=== PATIENT | male | born 1945 | race Caucasian/White ===

== ENCOUNTER 2018-11-23 18:52 | Inpatient (IN) | payer BC, MEDICARE ==
[2018-11-23 19:23] LABS: ADD MAN DIFF? NO
[2018-11-23 19:27] LABS: WHITE BLOOD COUNT 6.7 10^3/ul (4.8-10.8)
[2018-11-23 19:27] LABS: BASOPHIL # 0.1 10^3/ul (0.0-0.1); EOSINOPHILS % 0.3 % (0.0-7.0); HEMATOCRIT 45.1 % (42.0-52.0); LYMPHOCYTES # 1.8 10^3/ul (0.8-2.9); LYMPHOCYTES % 27.4 % (15.0-51.0); MEAN CORPUSCULAR HEMOGLOBIN 33.7 pg (29.0-33.0); MEAN CORPUSCULAR HGB CONC 33.3 g/dl (32.0-37.0); MEAN CORPUSCULAR VOLUME 101.3 fl (82.0-101.0); MEAN PLATELET VOLUME 9.7 fl (7.4-10.4); MONOCYTE # 0.5 10^3/ul (0.3-0.9); MONOCYTES % 7.2 % (0.0-11.0); NEUTROPHIL # 4.3 10^3/ul (1.6-7.5); NEUTROPHILS % 63.7 % (39.0-77.0); PLATELET COUNT 123 10^3/UL (140-415); RED BLOOD COUNT 4.45 10^6/ul (4.70-6.10); RED CELL DISTRIBUTION WIDTH 12.9 % (11.5-14.5)
[2018-11-23] MEDS: ASPIRIN 325 MG TAB PO (19:27)
[2018-11-23] MEDS: NITROGLYCERIN (SL) 0.4 MG TAB SL (19:27)
[2018-11-23 19:45] LABS: ALANINE AMINOTRANSFERASE 29 IU/L (13-69); ALBUMIN 3.9 g/dl (3.3-4.9); ALBUMIN/GLOBULIN RATIO 1.11; ALKALINE PHOSPHATASE 80 IU/L (42-121); ANION GAP 15 (5-13); ASPARTATE AMINO TRANSFERASE 46 IU/L (15-46); BILIRUBIN,INDIRECT 0.9 mg/dl (0-1.1); BILIRUBIN,TOTAL 0.9 mg/dl (0.2-1.3); BLOOD UREA NITROGEN 21 mg/dl (7-20); CALCIUM 8.4 mg/dl (8.4-10.2); CARBON DIOXIDE 26 mmol/L (21-31); CHLORIDE 104 mmol/L (97-110); CREATININE 1.42 mg/dl (0.61-1.24); GLUCOSE 81 mg/dl (70-220); LIPASE 47 U/L (23-300); POTASSIUM 4.4 mmol/L (3.5-5.1); SODIUM 145 mmol/L (135-144); TOTAL PROTEIN 7.4 g/dl (6.1-8.1)
[2018-11-23 19:55] LABS: TROPONIN-I 0.023 ng/ml (0.000-0.120)
[2018-11-23] MEDS: ACETAMINOPHEN 500 MG TAB PO (20:11)
[2018-11-23] MEDS ORDERED: NACL 0.9% 3 ML SYG IV (20:30)
[2018-11-23] MEDS ORDERED: ACETAMINOPHEN 325 MG TAB PO ×2 (20:30)
[2018-11-23] MEDS ORDERED: DOCUSATE SODIUM 100 MG CAP PO (20:30)
[2018-11-23] MEDS ORDERED: ONDANSETRON 4 MG INJ IV ×2 (20:30)
[2018-11-23] MEDS ORDERED: BISACODYL (EC) 5 MG TAB PO (20:30)
[2018-11-23] MEDS: IPRATROPIUM (NEB) 0.5 MG/2.5 ML AMP NEB (20:31)
[2018-11-23] MEDS: ALBUTEROL 0.083% (NEB) 2.5 MG/3 ML AMP NEB (20:32)
[2018-11-23] MEDS ORDERED: NON-FORMULARY/PATIENT OWN MED (Simvastatin* (Zocor*) 10 MG) PO (21:00)
[2018-11-23] MEDS ORDERED: NON-FORMULARY/PATIENT OWN MED (Budesonide-Formoterol Fumarate* (Symbicort*) 2 PUFF) IH (21:00)
[2018-11-23] MEDS ORDERED: ALBUTEROL HFA 8 GM INHALER INH (22:30)
[2018-11-23] MEDS: morphine 2 MG INJ IV (22:57)
[2018-11-23] MEDS: SOD CHLORIDE 0.9% 500 ML IV (22:57)
[2018-11-23] MEDS: ATORVASTATIN 10 MG TAB PO (22:57)
[2018-11-24] MEDS: MULTIVITAMINS 10 ML, THIAMINE 100 MG, FOLIC ACID 1 MG in SOD CHLORIDE 0.9% 1,000 ML IVPB (00:15)
[2018-11-24] MEDS: HEPARIN 5,000 UNIT/1 ML VIAL SC ×4 (01:17→22:15)
[2018-11-24 03:00] LABS: CREATINE KINASE 210 IU/L (23-200)
[2018-11-24 03:13] LABS: CK INDEX 1.4; TROPONIN-I 0.034 ng/ml (0.000-0.120)
[2018-11-24 03:19] LABS: CK-MB 3.04 ng/ml (0.0-2.4)
[2018-11-24] MEDS ORDERED: hydrALAzine (1 MG/ML) IV SYG IV (05:00)
[2018-11-24] MEDS: CHLORDIAZEPOXIDE 25 MG CAP PO ×3 (05:02→13:10)
[2018-11-24] MEDS: hydrALAzine 20 MG INJ IV (05:04)
[2018-11-24] MEDS: LORAZEPAM 2 MG INJ IV ×2 (05:51→18:25)
[2018-11-24] MEDS: PANTOPRAZOLE (EC) 40 MG TAB PO (05:51)
[2018-11-24 07:01] LABS: CHOL/HDL RATIO 2.3 RATIO; CHOLESTEROL 192 mg/dl (100-200); CREATINE KINASE 205 IU/L (23-200); HDL CHOLESTEROL 81 mg/dl (31-75); LDL CHOLESTEROL,CALCULATED 81 mg/dl; TRIGLYCERIDES 150 mg/dl (0-149)
[2018-11-24 07:01] LABS: MAGNESIUM 1.6 mg/dl (1.7-2.5)
[2018-11-24 07:02] LABS: CK INDEX 1.5; TROPONIN-I 0.045 ng/ml (0.000-0.120)
[2018-11-24 07:03] LABS: CK-MB 3.11 ng/ml (0.0-2.4)
[2018-11-24 07:43] LABS: HEMOGLOBIN A1C 4.9 % (0-5.9)
[2018-11-24 07:59] LABS: FOLATE > 20.0 ng/ml (2.8-20.0)
[2018-11-24] MEDS: ISOSORBIDE MONONITRATE(SR)30 MG TAB PO (08:33)
[2018-11-24] MEDS: AMLODIPINE 10 MG TAB PO (08:34)
[2018-11-24] MEDS: THIAMINE 100 MG TAB PO (08:34)
[2018-11-24] MEDS: FOLIC ACID 1 MG TAB PO (08:34)
[2018-11-24] MEDS: MULTIVITAMINS THERAPEUTIC TAB PO (08:34)
[2018-11-24] MEDS ORDERED: NON-FORMULARY/PATIENT OWN MED (Omeprazole* 20 MG) PO (09:00)
[2018-11-24] MEDS: BUDESONIDE (NEB) 0.5MG/2ML AMP INH ×2 (11:33→20:43)
[2018-11-24] MEDS: ARFORMOTEROL TARTRATE 15MCG/2 ML AMP INH ×2 (11:33→20:43)
[2018-11-24 11:44] LABS: CREATINE KINASE 178 IU/L (23-200)
[2018-11-24 11:55] LABS: CK INDEX 1.3; TROPONIN-I 0.035 ng/ml (0.000-0.120)
[2018-11-24 18:13] LABS: CREATINE KINASE 160 IU/L (23-200)
[2018-11-24 18:26] LABS: CK INDEX 1.4; CK-MB 2.29 ng/ml (0.0-2.4); TROPONIN-I 0.026 ng/ml (0.000-0.120)
[2018-11-24] MEDS: ATORVASTATIN 10 MG TAB PO (20:21)
[2018-11-25] MEDS ORDERED: CHLORDIAZEPOXIDE 25 MG CAP PO (02:30)
[2018-11-25] MEDS: PANTOPRAZOLE (EC) 40 MG TAB PO (05:47)
[2018-11-25] MEDS: HEPARIN 5,000 UNIT/1 ML VIAL SC ×3 (06:32→22:35)
[2018-11-25] MEDS: ARFORMOTEROL TARTRATE 15MCG/2 ML AMP INH ×2 (09:02→21:08)
[2018-11-25] MEDS: BUDESONIDE (NEB) 0.5MG/2ML AMP INH ×2 (09:03→21:20)
[2018-11-25] MEDS: THIAMINE 100 MG TAB PO (09:21)
[2018-11-25] MEDS: MULTIVITAMINS THERAPEUTIC TAB PO (09:21)
[2018-11-25] MEDS: ISOSORBIDE MONONITRATE(SR)30 MG TAB PO (09:21)
[2018-11-25] MEDS: AMLODIPINE 10 MG TAB PO (09:22)
[2018-11-25] MEDS: FOLIC ACID 1 MG TAB PO (09:22)
[2018-11-25] MEDS: LORAZEPAM 2 MG INJ IV ×3 (12:08→22:36)
[2018-11-25] MEDS: CHLORDIAZEPOXIDE 25 MG CAP PO ×3 (12:10→20:37)
[2018-11-25] MEDS: SOD CHLORIDE 0.45% 1,000 ML IV (15:00)
[2018-11-25] MEDS ORDERED: morphine 2 MG INJ IV (16:30)
[2018-11-25] MEDS: MULTIVITAMINS 10 ML, THIAMINE 100 MG, FOLIC ACID 1 MG in SOD CHLORIDE 0.9% 1,000 ML IVPB (16:54)
[2018-11-25] MEDS: MAGNESIUM SULFATE 1 GM/D5W 100 ML IVPB (16:59)
[2018-11-25] MEDS: ATORVASTATIN 10 MG TAB PO (20:36)
[2018-11-26] MEDS ORDERED: CHLORDIAZEPOXIDE 25 MG CAP PO (02:30)
[2018-11-26] MEDS: SOD CHLORIDE 0.45% 1,000 ML IV ×2 (05:09→17:40)
[2018-11-26] MEDS: PANTOPRAZOLE (EC) 40 MG TAB PO (05:12)
[2018-11-26 06:45] LABS: ADD MAN DIFF? NO
[2018-11-26 07:11] LABS: ANION GAP 8 (5-13); BLOOD UREA NITROGEN 12 mg/dl (7-20); CARBON DIOXIDE 26 mmol/L (21-31); CHLORIDE 103 mmol/L (97-110); CREATININE 0.81 mg/dl (0.61-1.24); GLUCOSE 94 mg/dl (70-220); POTASSIUM 3.7 mmol/L (3.5-5.1); SODIUM 137 mmol/L (135-144)
[2018-11-26 07:12] LABS: CALCIUM 8.6 mg/dl (8.4-10.2)
[2018-11-26 07:24] LABS: MAGNESIUM 1.4 mg/dl (1.7-2.5)
[2018-11-26 07:47] LABS: WHITE BLOOD COUNT 4.8 10^3/ul (4.8-10.8)
[2018-11-26 07:47] LABS: ABNORMAL IP MESSAGE 1; BASOPHILS % 0.8 % (0.0-2.0); EOSINOPHILS # 0.1 10^3/ul (0.0-0.5); EOSINOPHILS % 1.7 % (0.0-7.0); HEMATOCRIT 39.4 % (42.0-52.0); HEMOGLOBIN 13.6 g/dl (14.0-18.0); LYMPHOCYTES # 1.4 10^3/ul (0.8-2.9); LYMPHOCYTES % 30.3 % (15.0-51.0); MEAN CORPUSCULAR HEMOGLOBIN 34.3 pg (29.0-33.0); MEAN CORPUSCULAR HGB CONC 34.5 g/dl (32.0-37.0); MEAN CORPUSCULAR VOLUME 99.5 fl (82.0-101.0); MEAN PLATELET VOLUME 11.3 fl (7.4-10.4); MONOCYTE # 0.4 10^3/ul (0.3-0.9); MONOCYTES % 8.4 % (0.0-11.0); NEUTROPHIL # 2.8 10^3/ul (1.6-7.5); NEUTROPHILS % 58.2 % (39.0-77.0); PLATELET COUNT 56 10^3/UL (140-415); POSITIVE DIFF @See below; RED BLOOD COUNT 3.96 10^6/ul (4.70-6.10)
[2018-11-26] MEDS: CHLORDIAZEPOXIDE 25 MG CAP PO ×3 (08:48→21:26)
[2018-11-26] MEDS: MULTIVITAMINS THERAPEUTIC TAB PO (08:50)
[2018-11-26] MEDS: AMLODIPINE 10 MG TAB PO (08:50)
[2018-11-26] MEDS: THIAMINE 100 MG TAB PO (08:50)
[2018-11-26] MEDS: ISOSORBIDE MONONITRATE(SR)30 MG TAB PO (08:50)
[2018-11-26] MEDS: FOLIC ACID 1 MG TAB PO (08:50)
[2018-11-26] MEDS: ARFORMOTEROL TARTRATE 15MCG/2 ML AMP INH ×2 (09:39→19:38)
[2018-11-26] MEDS: BUDESONIDE (NEB) 0.5MG/2ML AMP INH ×2 (09:40→19:38)
[2018-11-26] MEDS: HEPARIN 5,000 UNIT/1 ML VIAL SC ×2 (10:27→21:36)
[2018-11-26] MEDS: MAGNESIUM SULFATE 3 GM in DEXTROSE 5% 100 ML IVPB (13:08)
[2018-11-26] MEDS: LORAZEPAM 2 MG INJ IV ×2 (13:22→21:26)
[2018-11-26] MEDS: MULTIVITAMINS 10 ML, THIAMINE 100 MG, FOLIC ACID 1 MG in SOD CHLORIDE 0.9% 1,000 ML IVPB (14:58)
[2018-11-26] MEDS: ATORVASTATIN 10 MG TAB PO (21:25)
[2018-11-27] MEDS: SOD CHLORIDE 0.45% 1,000 ML IV ×3 (00:01→21:13)
[2018-11-27] MEDS: LORAZEPAM 2 MG INJ IV (06:17)
[2018-11-27] MEDS: PANTOPRAZOLE (EC) 40 MG TAB PO (06:17)
[2018-11-27] MEDS: MULTIVITAMINS THERAPEUTIC TAB PO (09:17)
[2018-11-27] MEDS: THIAMINE 100 MG TAB PO (09:18)
[2018-11-27] MEDS: AMLODIPINE 10 MG TAB PO (09:18)
[2018-11-27] MEDS: FOLIC ACID 1 MG TAB PO (09:18)
[2018-11-27] MEDS: ISOSORBIDE MONONITRATE(SR)30 MG TAB PO (09:18)
[2018-11-27] MEDS: HEPARIN 5,000 UNIT/1 ML VIAL SC ×2 (09:19→22:56)
[2018-11-27] MEDS: CHLORDIAZEPOXIDE 25 MG CAP PO ×3 (09:24→23:04)
[2018-11-27] MEDS: ARFORMOTEROL TARTRATE 15MCG/2 ML AMP INH ×2 (12:13→20:23)
[2018-11-27] MEDS: BUDESONIDE (NEB) 0.5MG/2ML AMP INH ×2 (12:13→20:23)
[2018-11-27] MEDS: MULTIVITAMINS 10 ML, THIAMINE 100 MG, FOLIC ACID 1 MG in SOD CHLORIDE 0.9% 1,000 ML IVPB (12:59)
[2018-11-27] MEDS: FLUMAZENIL 0.5 MG INJ IV (21:13)
[2018-11-27] MEDS: ATORVASTATIN 10 MG TAB PO (22:56)
[2018-11-28] MEDS: PANTOPRAZOLE (EC) 40 MG TAB PO (06:00)
[2018-11-28] MEDS: BUDESONIDE (NEB) 0.5MG/2ML AMP INH ×2 (07:59→19:52)
[2018-11-28] MEDS: ARFORMOTEROL TARTRATE 15MCG/2 ML AMP INH ×2 (08:01→19:51)
[2018-11-28] MEDS: FOLIC ACID 1 MG TAB PO (08:44)
[2018-11-28] MEDS: THIAMINE 100 MG TAB PO (08:44)
[2018-11-28] MEDS: MULTIVITAMINS THERAPEUTIC TAB PO (08:44)
[2018-11-28] MEDS: AMLODIPINE 10 MG TAB PO (08:44)
[2018-11-28] MEDS: ISOSORBIDE MONONITRATE(SR)30 MG TAB PO (08:44)
[2018-11-28] MEDS: MULTIVITAMINS 10 ML, THIAMINE 100 MG, FOLIC ACID 1 MG in SOD CHLORIDE 0.9% 1,000 ML IVPB (08:46)
[2018-11-28] MEDS: CHLORDIAZEPOXIDE 25 MG CAP PO ×3 (08:46→22:15)
[2018-11-28] MEDS: SOD CHLORIDE 0.45% 1,000 ML IV (09:40)
[2018-11-28] MEDS: HEPARIN 5,000 UNIT/1 ML VIAL SC ×2 (10:15→22:16)
[2018-11-28] MEDS: MAGNESIUM SULFATE 4 GM/100 ML 100 ML IVPB (12:09)
[2018-11-28] MEDS: NITROGLYCERIN (SL) 0.4 MG TAB SL ×3 (18:54→19:17)
[2018-11-28 20:18] LABS: TROPONIN-I < 0.012 ng/ml (0.000-0.120)
[2018-11-28] MEDS: FAMOTIDINE 20 MG INJ IV (22:15)
[2018-11-28] MEDS: ATORVASTATIN 10 MG TAB PO (22:15)
[2018-11-29 06:18] LABS: TROPONIN-I 0.012 ng/ml (0.000-0.120)
[2018-11-29] MEDS: ARFORMOTEROL TARTRATE 15MCG/2 ML AMP INH (07:21)
[2018-11-29] MEDS: BUDESONIDE (NEB) 0.5MG/2ML AMP INH (07:30)
[2018-11-29] MEDS: CHLORDIAZEPOXIDE 25 MG CAP PO (09:13)
[2018-11-29] MEDS: ISOSORBIDE MONONITRATE(SR)30 MG TAB PO (09:15)
[2018-11-29] MEDS: FOLIC ACID 1 MG TAB PO (09:15)
[2018-11-29] MEDS: MULTIVITAMINS THERAPEUTIC TAB PO (09:15)
[2018-11-29] MEDS: FAMOTIDINE 20 MG INJ IV (09:17)
[2018-11-29] MEDS: AMLODIPINE 10 MG TAB PO (09:17)
[2018-11-29] MEDS: FLUMAZENIL 0.5 MG INJ IV (10:37)
[2018-11-29] MEDS: HEPARIN 5,000 UNIT/1 ML VIAL SC (10:39)
[2018-11-29] MEDS: PANTOPRAZOLE (EC) 40 MG TAB PO (10:59)
[2018-11-29] MEDS: NITROGLYCERIN (SL) 0.4 MG TAB SL (10:59)
== END 2018-11-29 19:20 | DRG 897 ==
LOC: MS1 11-27 00:49 → E/R 18:52 → TEL 11-25 15:18
DX: F10.239 Alcohol dependence with withdrawal, unspecified (principal); R07.89 Other chest pain; F10.229 Alcohol dependence with intoxication, unspecified; Y90.8 Blood alcohol level of 240 mg/100 ml or more; I10 Essential (primary) hypertension; K21.9 Gastro-esophageal reflux disease without esophagitis; J44.9 Chronic obstructive pulmonary disease, unspecified; D69.6 Thrombocytopenia, unspecified; Z72.0 Tobacco use; E78.5 Hyperlipidemia, unspecified
CPT/HCPCS: 36415; 71045; 80048; 80053; 80061; 80307; 82550; 82553; 82607; 82746; 83036; 83690; 83735; 84100; 84443; 84484; 85025; 93005; 93306; 94640; 94664; 97110; 97116; 97161; 97530; 99285-25; G0378